=== PATIENT | female | born 1995 | race Caucasian/White ===

== ENCOUNTER → 2016-05-27 | Outpatient (CLI) | payer OTHER ==
[2016-05-27 17:03] LABS: BASO % 0.2 % (0.0-1.0); EOS % 0.7 % (0.0-3.0); LARGE UNSTAINED CELL # 0.1 K/mm3 (0.0-0.4); LARGE UNSTAINED CELL % 1.6 % (0.0-4.0); LYMPH # 1.4 K/mm3 (1.5-6.5); LYMPH % 20.7 % (24.0-44.0); MEAN CORPUSCULAR HEMOGLOBIN 29.3 pg (27.0-33.0); MEAN CORPUSCULAR HGB CONC 33.2 g/dl (32.0-36.5); MEAN CORPUSCULAR VOLUME 88.4 fl (80.0-96.0); MONO # 0.4 K/mm3 (0.0-0.8); MONO % 5.6 % (0.0-5.0); NEUTROPHILS # 4.7 K/mm3 (1.8-7.7); NEUTROPHILS % 71.2 % (36.0-66.0); PLATELET COUNT, AUTOMATED 133 k/mm3 (150-450); RED CELL DISTRIBUTION WIDTH 12.3 % (11.5-14.5); WHITE BLOOD COUNT 6.6 K/mm3 (4.0-10.0)
[2016-05-29 11:29] LABS: HBsAg Prenatal NEGATIVE (NEGATIVE)
== END ==
LOC: M LAB 14:25
PROVIDERS: ATTEND Nurse Practitioner Women's Health
DX: Z34.83 Encounter for supervision of other normal pregnancy, third trimester (principal)

== ENCOUNTER 2016-07-04 00:05 | Outpatient (CLI) | payer OTHER | END 2016-07-04 00:50 | disposition home or self-care (01) | LOC: M LDO 00:05 | PROVIDERS: ATTEND Advanced Practice Midwife | DX: O47.03 False labor before 37 completed weeks of gestation, third trimester (principal); Z3A.36 36 weeks gestation of pregnancy; N89.9 Noninflammatory disorder of vagina, unspecified; O26.893 Other specified pregnancy related conditions, third trimester ==

== ENCOUNTER 2016-07-21 08:59 | Outpatient (CLI) | payer OTHER ==
[~2016-07-21] VITALS: Ht 170.2 cm; Wt 110.0 kg
[2016-07-21 09:27] VITALS: BP 142/80
[2016-07-21 10:20] VITALS: BP 131/64
--- NOTE | 2016-07-21 10:57 | IPN ---
DATE OF SERVICE: 07/21/2016 21-year-old 3, para 2, LMP 10/01/2015, EDC 07/30/2016 at 38 and 4. She thinks she had a spontaneous rupture of membranes. Her past history in 2012 at 36 weeks spontaneous vaginal delivery male 7 pounds 3 ounces, PPROM. In 2014 at 38 weeks spontaneous vaginal delivery male 9, 14, induction of labor for SROM. She was given steroids at 28 weeks of gestation. Risk factor is that she has no care between 6 weeks and 24 weeks. Labs are sparse. She is B positive. HIV is unknown. Hep is negative. RPR is negative. Rubella immune. Varicella is not available. No Pap smears available. No urine is available. Gonorrhea and chlamydia are negative. 1 hour glucose initially was 143. There is no evidence of a 3 hour GTT. Group B Streptococcus (GBS) is negative. CF was declined and she was too late for intergraded screening. On examination, she is in no distress. Blood pressure 131/64, respirations are 18, pulse is 117, temperature is 99.0. Her urine is 1.005, trace of leukocyte and trace of protein. Presently she is in no distress. Symphysis fundus height is 40, vertex, OT. Posterior closed. -4 station. Nitrazine and fern are negative. No length of stay of fluid in the pad or the perineum. She has a category 1 strip with irregular contractions. The rest of the examination is unremarkable. She is normocephalic, atraumatic. Neck full range of motion. Pupils equal, round, and reactive to light. Chest is clear bilaterally to bases. No wheezes or rhonchi. Distal pulses are symmetric. No evidence of DVT, PE or superficial phlebitis. No CVA tenderness. Nontender uterus. Four quadrant bowel sounds are noted. Appropriate symphysis fundus height. No rashes, lesions or pruritus. No arthralgia, myalgia. No complaints of cough, wheeze, shortness of breath or dyspnea on exertion. No chest pain. No bleeding. No bruising. She is neuro complete. No incontinence, urgency or frequency. No nausea, vomiting, diarrhea or constipation. She had an elevated 1 hour glucose. Did not do a 3 hour GTT. GYNE HISTORY: There is no evidence of Pap smear. PAST MEDICAL HISTORY: Unremarkable. SURGICAL HISTORY: Unremarkable. FAMILY HISTORY: Noncontributory. She does not smoke or drink, abuse drugs. There is no domestic violence. In summary, we have a 38 and 4 week of gestation with questionable rupture of membranes, not confirmed positive. She was discharged with precautions. We anticipate she may be back later with active contractions. Contractions irregular and intermittent at the present time. All questions were answered. Patient was discharged undelivered.
[2016-07-21] MEDS ORDERED: PRENTAB9 PO (11:14)
== END 2016-07-21 10:40 | disposition home or self-care (01) ==
LOC: M LDO 08:59
PROVIDERS: ATTEND Obstetrics & Gynecology
DX: O47.1 False labor at or after 37 completed weeks of gestation (principal); Z3A.38 38 weeks gestation of pregnancy

== ENCOUNTER 2016-07-23 10:22 | Outpatient (CLI) | payer OTHER ==
[~2016-07-23 10:22] MED LIST: PRENTAB9 PO
[2016-07-23 10:30] VITALS: BP 124/63
== END 2016-07-23 11:31 | disposition home or self-care (01) ==
LOC: M LDO 10:22
PROVIDERS: ATTEND Obstetrics & Gynecology
DX: O36.8130 Decreased fetal movements, third trimester, not applicable or unspecified (principal); Z3A.39 39 weeks gestation of pregnancy

== ENCOUNTER 2016-07-25 00:52 | Inpatient (IN) | payer OTHER ==
[2016-07-25] VITALS (21 sets, daily range): BP systolic 108–145; BP diastolic 53–77
[2016-07-25] MEDS ORDERED: LACTATED RINGER'S 1000 ML IV STA (01:27)
[2016-07-25] MEDS ORDERED: LR 1,000 ML IV SCH ×2 (01:27)
[2016-07-25] MEDS ORDERED: OXYTOCIN DRIP 30 UNITS in APPROPRIATE DILUENT 1 EA IV SCH (01:30)
[2016-07-25 02:11] LABS: MEAN CORPUSCULAR HEMOGLOBIN 26.6 pg (27.0-33.0); MEAN CORPUSCULAR HGB CONC 32.1 g/dl (32.0-36.5); MEAN CORPUSCULAR VOLUME 82.8 fl (80.0-96.0); RED CELL DISTRIBUTION WIDTH 14.4 % (11.5-14.5); WHITE BLOOD COUNT 7.4 K/mm3 (4.0-10.0)
[2016-07-25 02:35] LABS: CONTROL LINE INT CTR LINE PRESENT; HIV SCRN NEGATIVE (NEGATIVE); HIV SCRN1 NEGATIVE (NEGATIVE)
[2016-07-25] MEDS ORDERED: FENTANYL 2MCG/ML ROPIVACAINE 0.2% IN 0.9% NACL 200ML IVBAG As Ordered ONE (04:35)
[2016-07-25] MEDS ORDERED: ePHEDrine SULFATE 25 MG/5 ML(5MG/ML) SYRINGE IV PRN (05:30)
[2016-07-25] MEDS ORDERED: LACTATED RINGER'S 1000 ML IV PRN (05:30)
[2016-07-25] MEDS ORDERED: ONDANSETRON 4MG/2ML VIAL (J2405) IV PRN (05:30)
[2016-07-25] MEDS ORDERED: EPIDURAL COMMENT XX SCH (05:30)
[2016-07-25] MEDS ORDERED: FENTANYL/ROPIVACAINE/NACL BAG 200 ML EPIDURAL SCH (05:30)
[2016-07-25] MEDS ORDERED: REFRIGERATOR IV KEYS XX PRN (05:30)
[2016-07-25] MEDS ORDERED: diphenhydrAMINE INJ 50MG/ML VIAL (J1200) IV PRN (05:30)
[2016-07-25] MEDS ORDERED: EPIDURAL/PCA KEYS XX PRN (05:30)
[2016-07-25] MEDS ORDERED: NALOXONE INJ 0.4 MG/1 ML VIAL (J2310) IV PRN (05:30)
[2016-07-25] MEDS: PRENATAL VITAMIN TAB PO SCH (09:00)
[2016-07-25 12:13] LABS: CORD GAS ABE A -13.9; CORD GAS HCO3 A 21.2 MEQ/L; CORD GAS O2 SAT A 15.1 %; CORD GAS PCO2 A 98.5 mmHg; CORD GAS PH A 6.95 UNITS; CORD GAS PO2 A 16.1 mmHg; CORD GAS SBC A 12.5 MEQ/L; CORD GAS TCO2 A 24.2 MEQ/L
[2016-07-25 12:16] LABS: CORD GAS ABE V -4.2; CORD GAS HCO3 V 21.2 MEQ/L; CORD GAS O2 SAT V 79.6 %; CORD GAS PCO2 V 40.4 mmHg; CORD GAS PH V 7.338 UNITS; CORD GAS PO2 V 35.1 mmHg; CORD GAS SBC V 20.5 MEQ/L; CORD GAS TCO2 V 22.4 MEQ/L
[2016-07-25] MEDS ORDERED: METHYLERGONOVINE MALEATE 0.2 MG TAB PO PRN (12:30)
[2016-07-25] MEDS ORDERED: MEASLES,MUMPS,RUBELLA VACCINE INJ (MMR-II) (90707) SC SCH (12:30)
[2016-07-25] MEDS ORDERED: DIBUCAINE 1% OINTMENT 30GM TOP PRN (12:30)
[2016-07-25] MEDS ORDERED: RHOGAM 300 MCG (1500 IU) INJ (J2790) IM SCH (12:30)
[2016-07-25] MEDS ORDERED: ANUSOL HC CREAM 30GM TOP PRN (12:30)
[2016-07-25] MEDS ORDERED: MOM 30ML SUSPENSION UDC PO PRN (12:30)
[2016-07-25] MEDS ORDERED: DOCUSATE SODIUM 100 MG CAP PO PRN (12:30)
[2016-07-25] MEDS ORDERED: OXYTOCIN INJ 10 UNITS/ML VIAL (J2590) As Ordered ONE (13:15)
[2016-07-25] MEDS: IBUPROFEN 800 MG TAB PO PRN ×2 (13:39→22:04)
[2016-07-25] MEDS ORDERED: OXYTOCIN INJ 10 UNITS/ML VIAL (J2590) IV ONE (14:30)
[2016-07-25] MEDS: ACETAMINOPHEN 500 MG TAB PO PRN ×2 (14:43→23:01)
[2016-07-25] MEDS ORDERED: LR 1,000 ML IV ONE (15:15)
[2016-07-25] MEDS: AMPICILLIN SOD/SULBACTAM SOD 1.5 GM in D5W MINI-BAG PLUS 50 ML IV SCH (23:02)
[2016-07-26] MEDS: AMPICILLIN SOD/SULBACTAM SOD 1.5 GM in D5W MINI-BAG PLUS 50 ML IV SCH ×4 (05:03→23:00)
--- NOTE | 2016-07-26 05:16 | DN ---
DATE OF SERVICE: 07/25/2016 This lady is a 3, para 2 admitted at 39+ weeks of gestation in spontaneous labor with spontaneous rupture of membranes. She was augmented with Pitocin and an epidural and had full dilatation. She pushed out in the persistent occiput posterior (POP) position a live female . Cord around the neck times three. No shoulder issues at this time weighing 9 pounds, 4076 grams, scores of 5, 9 and 9 at one, five and seven minutes respectively. The venous pH was 7.33, base excess -4.2. Arterial pH was 6.95, base excess -13.9. Placenta delivered spontaneously thereafter. Three-vessel cord membranes and tissues intact. The uterus contracted well down on Pitocin. Examination of the vulva, vagina, lateral mart, anteroposterior mart were intact. Sphincter was tight. In summary, we have a term gestation, delivered a live female infant uneventfully.
[2016-07-26 06:00] VITALS: BP 119/58
[2016-07-26] MEDS: ACETAMINOPHEN 500 MG TAB PO PRN ×3 (06:00→19:52)
[2016-07-26 06:34] LABS: MEAN CORPUSCULAR HGB CONC 31.5 g/dl (32.0-36.5); MEAN CORPUSCULAR VOLUME 82.6 fl (80.0-96.0); RED CELL DISTRIBUTION WIDTH 14.5 % (11.5-14.5); WHITE BLOOD COUNT 14.1 K/mm3 (4.0-10.0)
--- NOTE | 2016-07-26 08:17 | IPN ---
DATE OF SERVICE: 07/26/2016 day #1. This is a 22-year-old, 3, now para 3, was admitted at 39 plus 2 weeks of gestation, had a spontaneous vaginal delivery, epidural in place, female, 9 pounds 0 ounces, 4076 grams, scores of 5, 9, and 9 with cord times three around the neck in the persistent occipitoposterior (POP) position. Arterial pH 6.95, base excess -13.9, venous pH 7.33, base excess -4.2. She has risk factors that she had an elevated 1-hour blood sugar but did not do her followup with a 3-hour GTT. She had a previous history of macrosomia with shoulder dystocia. At the present time, she is doing well. We discussed phlebitis, cystitis, mastitis, endometritis, cellulitis, diet, exercise, pain management, perineal, breast, and wound care. Her blood pressure today is 119/58, respirations 16, pulse 106, temperature 98.2. Her admitting hemoglobin was 10.4, hematocrit 32.4, platelets 131. day, hemoglobin 9.6, hematocrit 30.5, and platelets are 110. She is anxious to get home tomorrow. She wants to have a tubal ligation, which we will discuss at her 6-week checkup, and we have asked her to make an appointment for same. Our plan of management for discharge tomorrow. The baby is being monitored first blood sugars because of being over 9 pounds, and the patient and the baby are doing well. Breast-feeding is going well. The rest of the examination is unremarkable. She is neuro complete. She is normocephalic, atraumatic. Neck: Full range of motions. Distal pulses symmetric. No evidence of deep venous thrombosis (DVT), pulmonary embolism (PE), or superficial phlebitis. Chest is clear bilaterally to bases. No wheezes or rhonchi. No costovertebral angle (CVA) tenderness. Uterus 2 below. Lochia is moderate. Four-quadrant bowel sounds are noted. No rashes, lesions, or pruritus. She is not complaining of shortness of breath or dyspnea on exertion. She has no chest pain. She is not bleeding. She is neuro complete. No incontinence, urgency, or frequency. No nausea, vomiting, diarrhea, or constipation. Perineum is well. She has no other issues. She does not smoke or drink or abuse drugs and she has no domestic violence. The patient is actively anxious to go home tomorrow. Dr. Amezcua.
[2016-07-26] MEDS: PRENATAL VITAMIN TAB PO SCH (08:36)
[2016-07-26 18:00] VITALS: BP 130/60
[2016-07-26] MEDS: IBUPROFEN 800 MG TAB PO PRN (19:52)
[2016-07-26 21:18] LABS: BASO % 0.2 % (0.0-1.0); EOS # 0.1 K/mm3 (0.0-0.50); LARGE UNSTAINED CELL # 0.2 K/mm3 (0.0-0.4); LARGE UNSTAINED CELL % 1.7 % (0.0-4.0); LYMPH % 9.1 % (24.0-44.0); MEAN CORPUSCULAR HGB CONC 33.1 g/dl (32.0-36.5); MEAN CORPUSCULAR VOLUME 81.5 fl (80.0-96.0); MONO # 0.8 K/mm3 (0.0-0.8); MONO % 7.9 % (0.0-5.0); NEUTROPHILS # 7.9 K/mm3 (1.8-7.7); NEUTROPHILS % 80.2 % (36.0-66.0); PLATELET COUNT, AUTOMATED 114 k/mm3 (150-450); RED CELL DISTRIBUTION WIDTH 14.7 % (11.5-14.5); WHITE BLOOD COUNT 9.8 K/mm3 (4.0-10.0)
[2016-07-27] MEDS: ACETAMINOPHEN 500 MG TAB PO PRN (03:28)
[2016-07-27] MEDS: AMPICILLIN SOD/SULBACTAM SOD 1.5 GM in D5W MINI-BAG PLUS 50 ML IV SCH ×3 (05:00→16:39)
[2016-07-27 06:06] VITALS: BP 127/66
[2016-07-27 06:38] LABS: BASO % 0.2 % (0.0-1.0); EOS # 0.1 K/mm3 (0.0-0.50); LARGE UNSTAINED CELL # 0.1 K/mm3 (0.0-0.4); LARGE UNSTAINED CELL % 1.7 % (0.0-4.0); LYMPH # 0.7 K/mm3 (1.5-6.5); LYMPH % 8.5 % (24.0-44.0); MEAN CORPUSCULAR HEMOGLOBIN 26.7 pg (27.0-33.0); MEAN CORPUSCULAR HGB CONC 32.5 g/dl (32.0-36.5); MEAN CORPUSCULAR VOLUME 82.1 fl (80.0-96.0); MONO # 0.7 K/mm3 (0.0-0.8); MONO % 7.7 % (0.0-5.0); NEUTROPHILS # 6.8 K/mm3 (1.8-7.7); NEUTROPHILS % 80.9 % (36.0-66.0); PLATELET COUNT, AUTOMATED 117 k/mm3 (150-450); RED CELL DISTRIBUTION WIDTH 14.4 % (11.5-14.5); WHITE BLOOD COUNT 8.4 K/mm3 (4.0-10.0)
--- NOTE | 2016-07-27 07:00 | IPN ---
DATE: 07/27/2016 This lady is a 3 now para 3 admitted in spontaneous vaginal delivery, delivered a live female infant 9 pounds 4076 grams. of 5, 9 and 9. Had tight cords times three around the neck. Her risk factor is that she had elevated blood sugar at 20 weeks but did not do her 3-hour nor follow up as well. After delivery, she had an early temperature at 2205 on 07/25/2016 of 101.6. She then progressed well, had no complaints of chills, rigors, fevers or anything and she then had another temperature at 1950 of 102.1. She has had a blood culture. She had a urine culture. She was started on Unisom and we are waiting for her to be 24 hours afebrile. Her last fever was at 1950 on 07/26/2016. At that time, she denied any other symptoms except for fever. Presently she is breast-feeding. She was examined for sites of infection. Her EENT was normal. Her breast examination was normal. Chest was clear. Abdomen was soft. Uterus 2 below. Four quadrant bowel sounds. Perineum was intact and no lochia. No PE, DVT or superficial phlebitis. She is still feeling well and we are awaiting her 24-hour cycle. We talked about phlebitis, cystitis, mastitis, endometritis and cellulitis, diet, exercise, pain management, perineal, breast and wound care. She is anxious actually to go home and we are waiting for 8 o'clock tonight. The rest of the examination is unremarkable. She is normocephalic, atraumatic. Neck: Full range of motions. Pupils equal and reactive to light. Chest is clear bilaterally to bases. No wheezes or rhonchi. Thyroid midline, nontender, 30 grams. No CVA tenderness. Abdominal examination is negative. She has no rashes, lesions or pruritus. No arthralgia, myalgia. No complaints of cough, wheezes, shortness of breath or dyspnea on exertion. No chest pain. She is normocephalic. No incontinency, urgency or frequency. No nausea, vomiting, diarrhea or constipation. Our plan of management is continue the Unisom until she is 24 hours afebrile which will be at 8 o'clock tonight. At that time, if she is afebrile, our plans are sending her home. She is to make an appointment for 6-week checkup. We discussed taking her temperature at home. They so have a thermometer and to notify us if it is above 100.
[2016-07-27] MEDS: PRENATAL VITAMIN TAB PO SCH (08:26)
[2016-07-27 18:05] VITALS: BP 122/64
[2016-07-27] MEDS ORDERED: ACET50TA PO (20:26)
[2016-07-27] MEDS ORDERED: COLA100C3 PO (20:27)
[2016-07-27] MEDS ORDERED: MOTR200T44 PO (20:28)
== END 2016-07-27 21:00 | disposition home or self-care (01) | DRG 775 ==
LOC: M LDO 00:52 → M LDI 01:38 → M OBS 14:11
PROVIDERS: ADMIT Student in an Organized Health Care Education/Training Program; ATTEND Student in an Organized Health Care Education/Training Program
PROC: 10E0XZZ Delivery of Products of Conception, External Approach (ICD-10-PCS; principal; 2016-07-25)
DX: O69.1XX0 Labor and delivery complicated by cord around neck, with compression, not applicable or unspecified (principal); Z37.0 Single live birth; Z3A.39 39 weeks gestation of pregnancy; O64.0XX0 Obstructed labor due to incomplete rotation of fetal head, not applicable or unspecified